=== PATIENT | female | born 1970 | race Caucasian/White ===

== ENCOUNTER 2016-11-05 14:30 | Outpatient (CLI) | payer OTHER | END 2016-11-05 14:31 | DX: N39.0 Urinary tract infection, site not specified (principal) ==

== ENCOUNTER 2017-04-14 08:55 | Outpatient (CLI) | payer OTHER ==
--- NOTE | 2017-04-14 10:23 | Ultrasound Report ---
RIGHT BREAST ULTRASOUND: 04/14/2017 CLINICAL INDICATION: Inferior right breast pain, history of bilateral mastectomy and implant reconst ruction. TECHNIQUE: Real-time scanning was performed with inside account representative static images obtained. FINDINGS: Ultrasound of the inferior right breast was performed, directed to the region of the patie nt's pain. The inferior margin of the implant is noted. No discrete solid or cystic mass is appreci ated adjacent to the implant. No sonographically suspicious findings are seen. IMPRESSION: BENIGN FINDINGS. RECOMMENDATION: Continued clinical surveillance. BIRADS CATEGORY 2 - BENIGN FINDINGS. 10:9:42 JOB #: [id number] EXT JOB #:[id number]
== END 2017-04-14 08:56 | disposition home or self-care (01) ==
LOC: DI 08:55
PROVIDERS: ATTEND Family Medicine
DX: N64.4 Mastodynia (principal); Z85.3 Personal history of malignant neoplasm of breast
CPT/HCPCS: 76642

== ENCOUNTER 2017-10-11 16:40 | Outpatient (CLI) | payer OTHER | END 2017-10-11 16:41 | LOC: LAB.R 16:40 | PROVIDERS: ATTEND Family Medicine | DX: R30.0 Dysuria (principal) | CPT/HCPCS: 87086 ==

== ENCOUNTER 2018-04-04 00:53 | Emergency (ER) | payer OTHER ==
[2018-04-04 01:19] LABS: BILIRUBIN,URINE NEGATIVE (NEGATIVE); GLUCOSE, URINE (UA) NEGATIVE (NEGATIVE); KETONES,URINE (UA) NEGATIVE (NEGATIVE); LEUKOCYTE ESTERASE, URINE NEGATIVE (NEGATIVE); NITRITE,URINE NEGATIVE (NEGATIVE); OCCULT BLOOD,URINE MODERATE (NEGATIVE); PROTEIN,URINE NEGATIVE (NEGATIVE); UROBILINOGEN,URINE 0.2 (NORMAL) E.U./dL (NORMAL)
[2018-04-04] MEDS ORDERED: KETOROLAC 30 MG/ML VIAL IVP STA (01:22)
[2018-04-04] MEDS ORDERED: ONDANSETRON 4 MG/2 ML VIAL IM STA (01:22)
[2018-04-04] MEDS ORDERED: SODIUM CHLORIDE 0.9% 1,000 ML IV ONE (01:22)
[2018-04-04 01:28] LABS: BACTERIA,URINE None Seen /HPF (None Seen); CLARITY,URINE CLEAR (CLEAR); HCG UR QUAL NEGATIVE; SQUAMOUS EPITHELIAL CELL,UR RARE Squamous (<= Few)
[2018-04-04 01:36] LABS: BASOPHILS # (AUTO) 0.1 10^3/uL (0.0-0.1); BASOPHILS % (AUTO) 0.6 %; EOSINOPHILS # (AUTO) 0.2 10^3/uL (0.0-0.7); EOSINOPHILS % (AUTO) 1.7 %; HGB - HEMOGLOBIN 12.1 g/dL (12.0-16.0); LYMPHOCYTES % (AUTO) 25.8 %; MEAN CORPUSCULAR HEMOGLOBIN 28.6 pg (27.0-31.0); MEAN CORPUSCULAR HGB CONC 33.7 g/dL (32.0-36.0); MEAN PLATELET VOLUME 7.9 fL (7.9-10.8); MONOCYTES % (AUTO) 8.6 %; NEUTROPHILS # (AUTO) 7.3 10^3/uL (1.5-6.6); NEUTROPHILS % (AUTO) 63.3 %; PLT - PLATELET COUNT 289 10^3/uL (130-450); RED BLOOD COUNT 4.22 10^6/uL (4.20-5.40); RED CELL DISTRIBUTION WIDTH 12.8 % (12.0-15.0); WHITE BLOOD COUNT 11.5 x10^3/uL (4.8-10.8)
[2018-04-04] MEDS ORDERED: ONDANSETRON 4 MG/2 ML VIAL IVP STA (01:36)
[2018-04-04 01:47] LABS: ALBUMIN 4.3 g/dL (3.2-5.5); ALBUMIN/GLOBULIN RATIO 1.4 (1.0-2.2); BILIRUBIN,TOTAL 0.8 mg/dL (0.2-1.0); CREATININE 0.7 mg/dL (0.4-1.0); TOTAL PROTEIN 7.3 g/dL (6.7-8.2)
[2018-04-04] MEDS ORDERED: fentaNYL 100 MCG/2 ML VIAL IVP STA ×2 (02:02→04:18)
--- NOTE | 2018-04-04 02:44 | ED Physician Documentation ---
PD HPI ABD PAIN - Stated complaint Stated Complaint: ABDOMINAL PAIN - Chief complaint Chief Complaint: Abd Pain - History obtained from History obtained from: Patient - History of Present Illness Timing - onset: How many hours ago (12) Timing - details: Gradual onset, Still present Quality: Dull Location: Other (right-sided) Radiation: Right flank Worsened by: Eating Associated symptoms: Nausea. No: Fever, Vomiting, Diarrhea, Dysuria - Additional information Additional information: The patient is a 48-year-old female who presents with right-sided abdominal pain that started about 12 hours prior to arrival, and has been constant since that time. She describes it as dull, and gradual in onset. She reports associated nausea, but denies vomiting. She denies fever or dysuria. The pain radiates to her right mid back. It became worse after eating a sandwich and again after eating an apple. Her past medical history is significant for breast cancer for which she is status post chemotherapy. Surgical history includes hysterectomy, oophorectomy, and lysis of adhesions. Review of Systems Constitutional: denies: Fever Nose: denies: Congestion Throat: denies: Sore throat Cardiac: denies: Chest pain / pressure Respiratory: denies: Dyspnea, Cough GI: reports: Abdominal Pain, Nausea. denies: Vomiting, Diarrhea : reports: Hysterectomy. 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 : Other HEENT: None Psych: None Musculoskeletal: Osteoarthritis Derm: None - Past Surgical History Past Surgical History: Yes General: Other /LINUX ADMIN: Hysterectomy, Oophrectomy - Present Medications Home Medications: Ambulatory Orders Medication Instructions Recorded Confirmed Valacyclovir HCl [Valacyclovir] 500 mg PO DAILY 02/26/15 11/23/17 - Allergies Allergies/Adverse Reactions: Allergies Allergy/AdvReac Type Severity Reaction Status Date / Time Sulfa (Sulfonamide Allergy Severe Anaphylaxis Verified 04/04/18 00:59 Antibiotics) codeine AdvReac Severe Nausea/ Verified 04/04/18 00:59 H/A and Increased Heart Rate doxycycline AdvReac Severe Nausea Verified 04/04/18 00:59 amoxicillin AdvReac Nausea Verified 04/04/18 00:59 - Social History Does the pt smoke?: No Smoking Status: Never smoker Does the pt drink ETOH?: No Does the pt have substance abuse?: No - POLST Patient has POLST: No PD ED PE NORMAL - Vitals Vital signs reviewed: Yes (Initially hypertensive.) - General General: Alert and oriented X 3, Well developed/nourished - HEENT HEENT: Atraumatic, Moist mucous membranes, Pharynx benign - Neck Neck: Supple, no meningeal sign, No adenopathy, No JVD - Cardiac Cardiac: RRR, No murmur - Respiratory Respiratory: No respiratory distress, Clear bilaterally - Abdomen Abdomen: Normal bowel sounds, Soft, No organomegaly, Other (Tenderness to palpation both in the right upper quadrant and right lower quadrant, without rebound tenderness or guarding) - Back Back: Other (Mild right CVA tenderness to percussion.) - Derm Derm: No rash - Extremities Extremities: No edema, No calf tenderness / cord - Neuro Neuro: Alert and oriented X 3, No motor deficit, Normal speech Results - Vitals Vitals: Vital Signs - 24 hr 04/04/18 04/04/18 04/04/18 00:56 02:20 03:44 Temperature 37.3 C 36.4 C L Heart Rate 84 80 74 Respiratory 16 16 18 Rate Blood Pressure 184/96 H 164/88 H 169/84 H O2 Saturation 99 98 98 Oxygen O2 Source Room air - Labs Labs: Laboratory Tests 04/04/18 04/04/18 04/04/18 01:11 01:11 01:25 WBC 11.5 H RBC 4.22 Hgb 12.1 Hct 35.9 L MCV 85.0 MCH 28.6 MCHC 33.7 RDW 12.8 Plt Count 289 MPV 7.9 Neut # (Auto) 7.3 H Lymph # (Auto) 3.0 [place] # (Auto) 1.0 Eos # (Auto) 0.2 Baso # (Auto) 0.1 Absolute Nucleated RBC 0.00 Nucleated RBC % 0.0 Sodium Potassium Chloride Carbon Dioxide Anion Gap BUN Creatinine Estimated GFR (MDRD) Glucose Calcium Total Bilirubin AST ALT Alkaline Phosphatase Total Protein Albumin Globulin Albumin/Globulin Ratio Lipase Urine Color YELLOW Urine Clarity CLEAR Urine pH 6.0 Ur Specific [place] 1.010 1.010 Urine Protein NEGATIVE Urine Glucose (UA) NEGATIVE Urine Ketones NEGATIVE Urine Occult Blood MODERATE H Urine Nitrite NEGATIVE Urine Bilirubin NEGATIVE Urine Urobilinogen 0.2 (NORMAL) Ur Leukocyte Esterase NEGATIVE Urine RBC 6-10 H Urine WBC 0-3 Ur Squamous Epith Cells RARE Squamous Urine Bacteria None Seen Ur Microscopic Review INDICATED Urine Culture Comments NOT INDICATED Urine HCG, Qual NEGATIVE 04/04/18 01:25 WBC RBC Hgb Hct MCV MCH MCHC RDW Plt Count MPV Neut # (Auto) Lymph # (Auto) [place] # (Auto) Eos # (Auto) Baso # (Auto) Absolute Nucleated RBC Nucleated RBC % Sodium 137 Potassium 3.5 Chloride 104 Carbon Dioxide 23 Anion Gap 10.0 BUN 13 Creatinine 0.7 Estimated GFR (MDRD) 89 Glucose 106 H Calcium 9.0 Total Bilirubin 0.8 AST 21 ALT 20 Alkaline Phosphatase 121 Total Protein 7.3 Albumin 4.3 Globulin 3.0 Albumin/Globulin Ratio 1.4 Lipase 30 Urine Color Urine Clarity Urine pH Ur Specific [place] Urine Protein Urine Glucose (UA) Urine Ketones Urine Occult Blood Urine Nitrite Urine Bilirubin Urine Urobilinogen Ur Leukocyte Esterase Urine RBC Urine WBC Ur Squamous Epith Cells Urine Bacteria Ur Microscopic Review Urine Culture Comments Urine HCG, Qual - Rads (name of study) RUQ U/S Radiology: Prelim report reviewed, EMP read contemporaneously, See rad report ( Gallbladder and common bile duct appeared normal. No cholelithiasis or cholecystitis identified. Fatty liver.) PD MEDICAL DECISION MAKING - ED course Complexity details: reviewed old records, reviewed results, re-evaluated patient , considered differential, d/w patient, d/w family, d/w staff consultant ED course: The patient's presentation is significant for right-sided abdominal pain of uncertain etiology, with tenderness more in the right lower quadrant than elsewhere. Appendicitis remains a consideration. White blood cell count is mildly elevated at 11.5. Chemistry panel is unremarkable, and urinalysis reveals few red blood cells, without pyuria or bacteriuria. Abdominal ultrasound reveals normal gallbladder and biliary ducts. Appendix is not visualized. Other considerations include adhesions, and less likely possibility is renal colic. Her presentation does not suggest renal colic, but microscopic hematuria raises the possibility. CT scan of the abdomen and pelvis is clinically indicated. However the CT scanner at [facility] is not functional tonight. I discussed with the patient and her the possibility of transfer to [facility] to undergo CT scanning. They are in agreement. I discussed transfer of care with the emergency physician at [facility], and she accepts. The patient will transfer by private auto with her IV remaining in place with a saline lock. Treatment in the emergency department included administration of normal saline 1 L IV, ondansetron 4 mg IV, ketorolac 30 mg IV, and fentanyl 50 mcg IV 2. This improved the patient's pain, but she continued to have tenderness in the right lower quadrant. Transfer forms were completed. - Sepsis Event Vital Signs: Vital Signs - 24 hr 04/04/18 04/04/18 04/04/18 00:56 02:20 03:44 Temperature 37.3 C 36.4 C L Heart Rate 84 80 74 Respiratory 16 16 18 Rate Blood Pressure 184/96 H 164/88 H 169/84 H O2 Saturation 99 98 98 Oxygen O2 Source Room air Departure - Departure Disposition: 02 Transfer Acute Care Hosp Clinical Impression: Abdominal pain Qualifiers: Abdominal location: right lower quadrant Qualified Code(s): R10.31 - Right lower quadrant pain Condition: Stable Instructions: ED Abdominal Pain Appendx Poss Follow-Up: Francisca Strauss MD [Primary Care Provider] - Comments: Go directly to the emergency department at [facility] in [place]. Do not eat or drink anything. Discharge Date/Time: 04/04/18 04:54
[2018-04-04 03:45] VITALS: BP 169/84
--- NOTE | 2018-04-04 03:59 | Ultrasound Report ---
Procedure Date: 04/04/2018 Accession Number: [id number] / [id number] Procedure: US - Abdomen Limited CPT Code: FULL RESULT: EXAM: ABDOMEN ULTRASOUND LIMITED, RUQ EXAM DATE: 04/04/2018 03:25 AM. CLINICAL HISTORY: Right upper quadrant pain. COMPARISON: None. TECHNIQUE: Real-time scanning was performed with static images obtained. FINDINGS: Liver: Echogenic. 17.0 cm. Main portal vein flow: Hepatopetal. Gallbladder: Normal. No stones, wall thickening, or sonographic Campbell's sign. Biliary System: CBD measures 3.1 mm. No intrahepatic or extrahepatic ductal dilatation. Other: Right kidney measures 9.5 cm and appears normal. Pancreas is not well seen. IMPRESSION: 1. Gallbladder and common duct appear normal. No cholelithiasis or cholecystitis identified. 2. Fatty liver. RADIA
== END 2018-04-04 04:54 | disposition short-term general hospital (02) ==
LOC: ED 00:53
DX: R10.31 Right lower quadrant pain (principal); R10.11 Right upper quadrant pain; R11.0 Nausea; D72.829 Elevated white blood cell count, unspecified; R31.29 Other microscopic hematuria; K76.0 Fatty (change of) liver, not elsewhere classified; Z85.3 Personal history of malignant neoplasm of breast
CPT/HCPCS: 36415; 76705; 80053; 81001; 81003; 81025; 83690; 85025; 87086; 96361; 96372; 96374; 96375; 96376; 99284

== ENCOUNTER 2018-06-23 13:07 | Outpatient (CLI) | payer OTHER ==
[2018-06-23 18:52] LABS: CREATININE 0.6 mg/dL (0.4-1.0)
== END 2018-06-23 13:08 | disposition home or self-care (01) ==
LOC: LAB.N 13:07
PROVIDERS: ATTEND Urology
DX: R31.9 Hematuria, unspecified (principal)
CPT/HCPCS: 36415; 82565; 84520

== ENCOUNTER 2018-09-01 08:00 | Outpatient (CLI) | payer OTHER | END 2018-09-01 23:59 | disposition home or self-care (01) | LOC: LAB.R 08:00 | PROVIDERS: ATTEND Physician Assistant Medical | DX: R30.0 Dysuria (principal) | CPT/HCPCS: 87086 ==

== ENCOUNTER 2018-10-19 10:15 | Outpatient (CLI) | payer OTHER ==
--- NOTE | 2018-10-19 14:46 | XRAY Report ---
Reason: SHOULDER PX LF/SHOULDER PX RT Procedure Date: 10/19/2018 Accession Number: [id number] / [id number] Procedure: WCP - Shoulder 2 View BILAT CPT Code: FULL RESULT: EXAM: BILATERAL SHOULDER RADIOGRAPHY EXAM DATE: 10/19/2018 10:28 AM. CLINICAL HISTORY: Chronic bilateral shoulder pain COMPARISON: None. TECHNIQUE: 2 views each shoulder. FINDINGS: RIGHT: Bones: No fracture or bone lesion. Joints: The glenohumeral and acromioclavicular joints are anatomically aligned without significant degenerative change Soft tissues: The included hemithorax is unremarkable. No soft tissue calcification. LEFT: Bones: No fracture or bone lesion. Joints: The glenohumeral and acromioclavicular joints are anatomically aligned. Minor degenerative change at the acromioclavicular joint. Soft tissues: The included hemithorax is unremarkable. There is calcification adjacent to the greater tuberosity consistent with calcific tendinitis. IMPRESSION: 1. Negative right shoulder radiography. 2. Left shoulder calcific tendinitis and early degenerative change. RADIA
== END 2018-10-19 10:16 | disposition home or self-care (01) ==
LOC: DI.WCP 10:15
PROVIDERS: ATTEND Physician Assistant Medical
DX: M75.32 Calcific tendinitis of left shoulder (principal); M19.012 Primary osteoarthritis, left shoulder; M25.511 Pain in right shoulder

== ENCOUNTER 2019-01-21 20:40 | Emergency (ER) | payer OTHER ==
--- NOTE | 2019-01-21 21:34 | ED Physician Documentation ---
PD HPI BACK PAIN - Stated complaint Stated Complaint: BACK PX/RT HIP PX - Chief complaint Chief Complaint: Back Pain - History obtained from History obtained from: Patient - History of Present Illness Timing - onset: Enter time (15:20), Today Timing - details: Abrupt onset Pain level now: 8 Location: Upper, Lower Quality: Pain Associated symptoms: No: Fever, Weakness, Numbness, Incontinent of urine, Unable to urinate, Hematuria, Incontinent of stool Improves with: Rest, Position Worsened by: Movement Similar symptoms before: Has not had sx before Recently seen: Not recently seen - Additional information Additional information: 3:20 PM today while at work, patient tripped on a shoe box, falling backwards, landing predominantly on her right side (right hip/buttock). She c/o gradually worsening pain in upper/mid back, as well as right buttock area. Occasionally the pain briefly radiates down RLE. Took ibuprofen and tylenol with relief but pain is worsening as those medications are wearing off. Review of Systems : denies: Incontinent Musculoskeletal: reports: Back pain, Joint pain (right hip, although predominantly right buttock in region of right pelvic ischium). 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 HEENT: None Psych: None Musculoskeletal: Osteoarthritis Derm: None - Past Surgical History Past Surgical History: Yes General: Other /SILICA FILTER OPERATOR: Hysterectomy, Oophrectomy - Present Medications Home Medications: Ambulatory Orders Medication Instructions Recorded Confirmed Valacyclovir HCl [Valacyclovir] 500 mg PO DAILY PRN 02/26/15 01/21/19 - Allergies Allergies/Adverse Reactions: Allergies Allergy/AdvReac Type Severity Reaction Status Date / Time Sulfa (Sulfonamide Allergy Severe Anaphylaxis Verified 01/21/19 20:50 Antibiotics) codeine AdvReac Severe Nausea/ Verified 01/21/19 20:50 H/A and Increased Heart Rate doxycycline AdvReac Severe Nausea Verified 01/21/19 20:50 amoxicillin AdvReac Nausea Verified 01/21/19 20:50 - Social History Does the pt smoke?: No Smoking Status: Never smoker Does the pt drink ETOH?: No Does the pt have substance abuse?: No - Immunizations Immunizations are current?: Yes - POLST Patient has POLST: No PD ED PE NORMAL - Vitals Vital signs reviewed: Yes - General General: Alert and oriented X 3, No acute distress, Well developed/nourished - Back Back: Other (mild TTP lower thoracic spine, midline, without obvious deformity, and without crepitus or bony step off. there is also TTP right ischium (ischial tuberosity)) - Derm Derm: Normal color, Warm and dry - Extremities Extremities: Normal ROM s pain - Neuro Neuro: No motor deficit, No sensory deficit Results - Vitals Vitals: Vital Signs - 24 hr 01/21/19 01/21/19 20:46 22:44 Temperature 36.5 C 36.1 C L Heart Rate 86 87 Respiratory 14 18 Rate Blood Pressure 180/91 H 167/84 H O2 Saturation 99 100 Oxygen O2 Source Room air - Rads (name of study) pelvis xray Radiology: Prelim report reviewed, See rad report thoracic spine xrays Radiology: Prelim report reviewed, See rad report PD MEDICAL DECISION MAKING - ED course Complexity details: reviewed results, re-evaluated patient, considered differential, d/w patient Departure - Departure Disposition: 01 Home, Self Care Clinical Impression: Fall, Back injury Condition: Good Instructions: ED Low Back Pain Injury Follow-Up: Gaye Jimenez PA-C [Primary Care Provider] - Discharge Date/Time: 01/21/19 22:46
[2019-01-21] MEDS ORDERED: IBUPROFEN 600 MG TABLET PO STA (21:46)
--- NOTE | 2019-01-21 22:16 | XRAY Report ---
Reason: fall, pain, tenderness Procedure Date: 01/21/2019 Accession Number: [id number] / [id number] Procedure: XR - Pelvis 1 View CPT Code: FULL RESULT: EXAM: PELVIS RADIOGRAPHY EXAM DATE: 01/21/2019 10:04 PM. CLINICAL HISTORY: Fall, pain, tenderness. COMPARISON: None. TECHNIQUE: 1 view. FINDINGS: Bones: Normal. No fracture or bone lesion. Joints: The visualized hip, pubis symphysis, and sacroiliac joints are preserved. No subluxation. Soft Tissues: Several surgical clips are seen within the pelvis. IMPRESSION: No evidence for acute fractures of the pelvis and hips. RADIA
--- NOTE | 2019-01-21 22:17 | XRAY Report ---
Reason: fall, pain , tenderness Procedure Date: 01/21/2019 Accession Number: [id number] / [id number] Procedure: XR - Thoracic Spine 2 View CPT Code: FULL RESULT: EXAM: THORACIC SPINE RADIOGRAPHY EXAM DATE: 01/21/2019 10:04 PM. CLINICAL HISTORY: Fall, pain , tenderness. COMPARISON: None. TECHNIQUE: 2 views. FINDINGS: Alignment: There is thoracic kyphosis. Bones: No fractures or bone lesions. Disks: Normal. Disk heights are maintained. Soft Tissues: Normal. The visualized lungs and cardiomediastinal silhouette are normal. IMPRESSION: 1. Thoracic kyphosis. 2. No fractures. RADIA
[2019-01-21 22:45] VITALS: BP 167/84
== END 2019-01-21 22:46 | disposition home or self-care (01) ==
LOC: ED 20:40
DX: S39.92XA Unspecified injury of lower back, initial encounter (principal); S29.9XXA Unspecified injury of thorax, initial encounter; W01.0XXA Fall on same level from slipping, tripping and stumbling without subsequent striking against object, initial encounter; Y93.89 Activity, other specified; Y92.512 Supermarket, store or market as the place of occurrence of the external cause; Y99.0 Civilian activity done for income or pay; M40.294 Other kyphosis, thoracic region
CPT/HCPCS: 1040M; 72070; 72170; 99282; 99283; A9270

== ENCOUNTER 2020-07-03 12:56 | Outpatient (CLI) | payer MEDICAID ==
--- NOTE | 2020-07-04 15:27 | Ultrasound Report ---
LIMITED ULTRASOUND OF LEFT BREAST: 07/03/2020 CLINICAL: Patient returns for imaging over a suspected mass in the left chest. No prior exams were available for comparison. Real-time ultrasound of the left breast was performed. Gross scale images of the real-time examinati on were reviewed. No significant abnormalities were seen sonographically along the left chest wall in the area of palpa ble abnormality. Mastectomy has been performed with tram flap reconstruction, per patient. IMPRESSION: NEGATIVE There is no sonographic correlate to the patient's palpable abnormality and no evidence of recurrent malignancy. Return to clinical screening schedule per oncology is recommended. Findings and recommendations were conveyed to the patient at time of exam. This exam was interpreted at Station ID: [id number]. Electronically Signed By: María reina/:07/03/2020 13:49:32 Ultrasound BI-RADS: 1 Negative BI-RADS CATEGORY: (1) - 1 Unspecified - other no recall LATERALITY: (B)
== END 2020-07-03 12:57 | disposition home or self-care (01) ==
LOC: DI 12:56
PROVIDERS: ATTEND Family Medicine
DX: N63.20 Unspecified lump in the left breast, unspecified quadrant (principal)
CPT/HCPCS: 76642

== ENCOUNTER 2021-03-25 11:17 | Emergency (ER) | payer MEDICAID ==
--- NOTE | 2021-03-25 12:50 | ED Physician Documentation ---
PD HPI ABD PAIN - Stated complaint Stated Complaint: ABD PX - Chief complaint Chief Complaint: Abd Pain - History obtained from History obtained from: Patient - History of Present Illness Timing - onset: How many days ago (2-3) Timing - duration: Days (3) Timing - details: Gradual onset, Still present Quality: Cramping, Aching, Pain Location: Suprapubic, LLQ Radiation: No: Lower back, Left flank Improved by: Laying still. No: BM Worsened by: Palpation. No: Eating Associated symptoms: Nausea, Hematochezia (Has been having formed stool with some mild looseness. She noted mucus and some blood yesterday and more blood mixed with stool today.). No: Fever, Vomiting, Diarrhea, Constipation Review of Systems Constitutional: reports: Chills. denies: Fever Nose: denies: Rhinorrhea / runny nose, Congestion Throat: denies: Sore throat Cardiac: denies: Palpitations Respiratory: denies: Cough GI: reports: Abdominal Pain, Nausea, Diarrhea (some mucous and loose stool, with red blood mixed with some brown stool, per pateint.). 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 HEENT: None Psych: None Musculoskeletal: Osteoarthritis Derm: None - Past Surgical History Past Surgical History: Yes General: Other /DESIGNER ARCHITECT: Hysterectomy, Oophrectomy - Present Medications Home Medications: Ambulatory Orders Medication Instructions Recorded Confirmed HYDROcod/ACETAM 5/325 [[place] 5/325] 1 ea PO Q6H PRN #15 tablet 03/25/21 Ondansetron Odt [Zofran] 4 mg TL Q6H PRN #15 tablet 03/25/21 cephALEXin [Keflex] 500 mg PO BID 7 Days #14 cap 03/25/21 metroNIDAZOLE [Flagyl] 500 mg PO BID 7 Days #14 tablet 03/25/21 - Allergies Allergies/Adverse Reactions: Allergies Allergy/AdvReac Type Severity Reaction Status Date / Time Sulfa (Sulfonamide Allergy Severe Anaphylaxis Verified 03/25/21 11:55 Antibiotics) codeine AdvReac Severe Nausea/ Verified 03/25/21 11:55 H/A and Increased Heart Rate doxycycline AdvReac Severe Nausea Verified 03/25/21 11:55 amoxicillin AdvReac Nausea Verified 03/25/21 11:55 - Social History Does the pt smoke?: No Smoking Status: Never smoker Does the pt drink ETOH?: No Does the pt have substance abuse?: No - Immunizations Immunizations are current?: Yes - POLST Patient has POLST: No PD ED PE NORMAL - Vitals Vital signs reviewed: Yes - General General: Alert and oriented X 3, No acute distress, Well developed/nourished - Neck Neck: Supple, no meningeal sign, No adenopathy - Cardiac Cardiac: RRR, No murmur - Respiratory Respiratory: Clear bilaterally - Abdomen Abdomen: Normal bowel sounds, Soft, Non distended, No organomegaly, Other (tender LLQ with some guarding. No percussion nor rebound. ) Results - Vitals Vitals: Oxygen O2 Source Room air - Labs Labs: Laboratory Tests 03/25/21 03/25/21 03/25/21 12:50 12:50 12:55 WBC 9.1 RBC 4.69 Hgb 13.3 Hct 40.9 MCV 87.2 MCH 28.4 MCHC 32.5 RDW 13.2 Plt Count 272 MPV 9.8 Neut # (Auto) 5.4 Lymph # (Auto) 2.6 Pepin # (Auto) 0.8 Eos # (Auto) 0.2 Baso # (Auto) 0.0 Absolute Nucleated RBC 0.00 Nucleated RBC % 0.0 ESR Sodium Potassium Chloride Carbon Dioxide Anion Gap BUN Creatinine Estimated GFR (MDRD) Glucose Calcium Total Bilirubin AST ALT Alkaline Phosphatase Total Protein Albumin Globulin Albumin/Globulin Ratio Lipase Urine Color YELLOW Urine Clarity CLEAR Urine pH 5.5 Ur Specific [place] 1.025 Urine Protein NEGATIVE Urine Glucose (UA) NEGATIVE Urine Ketones NEGATIVE Urine Occult Blood MODERATE H Urine Nitrite NEGATIVE Urine Bilirubin NEGATIVE Urine Urobilinogen 0.2 (NORMAL) Ur Leukocyte Esterase NEGATIVE Urine RBC 0-5 Urine WBC 0-3 Ur Squamous Epith Cells RARE Squamous Urine Bacteria Rare Ur Microscopic Review INDICATED Urine Culture Comments NOT INDICATED Urine HCG, Qual NEGATIVE 03/25/21 03/25/21 12:55 12:55 WBC RBC Hgb Hct MCV MCH MCHC RDW Plt Count MPV Neut # (Auto) Lymph # (Auto) [place] # (Auto) Eos # (Auto) Baso # (Auto) Absolute Nucleated RBC Nucleated RBC % ESR 18 Sodium 138 Potassium 3.8 Chloride 104 Carbon Dioxide 26 Anion Gap 8.0 BUN 13 Creatinine 0.6 Estimated GFR (MDRD) 105 Glucose 86 Calcium 9.6 Total Bilirubin 0.8 AST 21 ALT 20 Alkaline Phosphatase 123 H Total Protein 8.1 Albumin 4.7 Globulin 3.4 Albumin/Globulin Ratio 1.4 Lipase 32 Urine Color Urine Clarity Urine pH Ur Specific [place] Urine Protein Urine Glucose (UA) Urine Ketones Urine Occult Blood Urine Nitrite Urine Bilirubin Urine Urobilinogen Ur Leukocyte Esterase Urine RBC Urine WBC Ur Squamous Epith Cells Urine Bacteria Ur Microscopic Review Urine Culture Comments Urine HCG, Qual - Rads (name of study) abd/pelbic CT Radiology: Prelim report reviewed (small segment of sigmoid colon with thickening and stranding adjacent to diverticula, c/w local diverticulitis. ), See rad report PD MEDICAL DECISION MAKING - ED course Complexity details: reviewed results, considered differential, d/w patient Departure - Departure Disposition: 01 Home, Self Care Clinical Impression: Lower abdominal pain, Acute diverticulitis Condition: Stable Record reviewed to determine appropriate education?: Yes Instructions: ED Diverticulitis Prescriptions: metroNIDAZOLE [Flagyl] 500 mg PO BID 7 Days #14 tablet cephALEXin [Keflex] 500 mg PO BID 7 Days #14 cap HYDROcod/ACETAM 5/325 [[place] 5/325] 1 ea PO Q6H PRN #15 tablet PRN Reason: Pain Ondansetron Odt [Zofran] 4 mg TL Q6H PRN #15 tablet PRN Reason: Nausea / Vomiting Comments: Your CT scan shows a local area of inflammation and infection in the sigmoid colon consistent with diverticulitis/colitis. We would treat this with staying well-hydrated and using anti-inflammatories such as ibuprofen or naproxen twice daily with food. Also cephalexin and metronidazole antibiotics twice daily for a week. Add Tylenol every 4-6 hours if needed for pain. Use hydrocodone alternatively if needed for worse pain. Add ondansetron if needed for nausea. I would anticipate improvement in the pain and stopping of the mucus and blood with the stool over the next 2 to 3 days. Recheck if not improved well in the next several days and resolved by 3 to 5 days return sooner if worse. Discharge Date/Time: 03/25/21 16:15
[2021-03-25 13:00] LABS: BASOPHILS % (AUTO) 0.4 %; EOSINOPHILS # (AUTO) 0.2 10^3/uL (0.0-0.7); EOSINOPHILS % (AUTO) 2.3 %; HCT - HEMATOCRIT 40.9 % (37.0-47.0); HGB - HEMOGLOBIN 13.3 g/dL (12.0-16.0); LYMPHOCYTES # (AUTO) 2.6 10^3/uL (1.5-3.5); MEAN CORPUSCULAR HEMOGLOBIN 28.4 pg (27.0-31.0); MEAN CORPUSCULAR HGB CONC 32.5 g/dL (32.0-36.0); MEAN CORPUSCULAR VOLUME 87.2 fL (81.0-99.0); MEAN PLATELET VOLUME 9.8 fL (7.9-10.8); MONOCYTES # (AUTO) 0.8 10^3/uL (0.0-1.0); MONOCYTES % (AUTO) 9.1 %; NEUTROPHILS # (AUTO) 5.4 10^3/uL (1.5-6.6); PLT - PLATELET COUNT 272 10^3/uL (130-450); RED BLOOD COUNT 4.69 10^6/uL (4.20-5.40); RED CELL DISTRIBUTION WIDTH 13.2 % (12.0-15.0); WHITE BLOOD COUNT 9.1 x10^3/uL (4.8-10.8)
[2021-03-25 13:12] LABS: BILIRUBIN,URINE NEGATIVE (NEGATIVE); GLUCOSE, URINE (UA) NEGATIVE (NEGATIVE); KETONES,URINE (UA) NEGATIVE (NEGATIVE); LEUKOCYTE ESTERASE, URINE NEGATIVE (NEGATIVE); NITRITE,URINE NEGATIVE (NEGATIVE); OCCULT BLOOD,URINE MODERATE (NEGATIVE); PH,URINE 5.5 PH (5.0-7.5); PROTEIN,URINE NEGATIVE (NEGATIVE); UROBILINOGEN,URINE 0.2 (NORMAL) E.U./dL (NORMAL)
[2021-03-25 13:13] LABS: ALBUMIN 4.7 g/dL (3.2-5.5); ALBUMIN/GLOBULIN RATIO 1.4 (1.0-2.2); BILIRUBIN,TOTAL 0.8 mg/dL (0.2-1.0); CALCIUM 9.6 mg/dL (8.5-10.3); CREATININE 0.6 mg/dL (0.4-1.0); POTASSIUM 3.8 mmol/L (3.5-5.0); TOTAL PROTEIN 8.1 g/dL (6.7-8.2)
[2021-03-25 13:13] LABS: CLARITY,URINE CLEAR (CLEAR)
[2021-03-25] MEDS ORDERED: HYDROmorphone 1 MG/ML CARPUJECT IVP STA (13:15)
[2021-03-25] MEDS ORDERED: SODIUM CHLORIDE 0.9% 1,000 ML IV STA (13:15)
[2021-03-25] MEDS ORDERED: KETOROLAC 15 MG/ML VIAL IVP STA (13:15)
[2021-03-25 13:38] LABS: BACTERIA,URINE Rare /HPF (None Seen); RBC,URINE 0-5 /HPF (0-5); SQUAMOUS EPITHELIAL CELL,UR RARE Squamous (<= Few); WBC,URINE 0-3 /HPF (0-5)
[2021-03-25 13:48] LABS: HCG UR QUAL NEGATIVE
[2021-03-25] MEDS ORDERED: IOVERSOL 320 100 ML VIAL IVP ONE ×2 (14:21→16:30)
--- NOTE | 2021-03-25 15:08 | CT Report ---
PROCEDURE: Abdomen/Pelvis W INDICATIONS: lower abd pain and bloody stool CONTRAST: IV CONTRAST: Optiray 320 ml: 100 PO CONTRAST: *NO PO CONTRAST TECHNIQUE: After the administration of intravenous contrast, 5 mm thick sections acquired from the diaphragms to the symphysis. 5 mm thick coronal and sagittal reformats were acquired. For radiation dose reducti on, the following was used: automated exposure control, adjustment of mA and/or kV according to rakesh ent size. COMPARISON: None. FINDINGS: Image quality: Excellent. ABDOMEN: Lung bases: Lung bases are clear. Heart size is normal. Solid organs: Liver is enlarged with steatosis. The spleen are normal in size and enhancement. Gal lbladder is unremarkable. Biliary system is non dilated. Pancreas enhances normally. No adrenal no dules. Kidneys demonstrate normal size and enhancement, without hydronephrosis. Right renal cyst is noted. Peritoneum and bowel: Bowel loops are nonobstructive. Small segment of sigmoid colon demonstrating thickening with pericolonic stranding. Diverticula are noted. Trace dependent free fluid. No free air. Nodes and vessels: No retroperitoneal or mesenteric adenopathy by size criteria. Aorta and inferior vena cava are normal in size. Miscellaneous: No ventral hernias. PELVIS: Genitourinary: Bladder wall thickness is normal. Miscellaneous: No inguinal hernias or adenopathy. Bones: No suspicious bony lesions. No vertebral body compression fractures. IMPRESSION: 1. Small segment of sigmoid colon demonstrating thickening with pericolonic stranding and diverticul a, most consistent with colitis secondary to diverticulitis. Minimal dependent fluid. No abscess. Reviewed by: Shirin Varela MD on 03/25/2021 3:07 PM PDT Approved by: Shirin Varela MD on 03/25/2021 3:07 PM PDT Station ID: [id number]
[2021-03-25] MEDS ORDERED: cefTRIAXone 1 GM VIAL IVP STA (15:17)
[2021-03-25 15:57] VITALS: BP 126/82
[2021-03-25] MEDS ORDERED: ONDANSETRON 4 MG/2 ML VIAL IVP STA (15:59)
== END 2021-03-25 16:15 | disposition home or self-care (01) ==
LOC: ED 11:17
DX: K57.12 Diverticulitis of small intestine without perforation or abscess without bleeding (principal)
CPT/HCPCS: 36415; 74177; 80053; 81001; 81025; 83690; 85025; 85651; 96374; 96375; 99284; 99285; J1170; Q9967; 81003; 87086

== ENCOUNTER 2022-05-04 08:00 | Outpatient (CLI) | payer OTHER, MEDICAID ==
--- NOTE | 2022-05-05 09:09 | XRAY Report ---
PROCEDURE: Shoulder 3 View LT INDICATIONS: SHOULDER PX TECHNIQUE: 4 views of the shoulder were acquired. COMPARISON: None. FINDINGS: Mild left glenohumeral joint space narrowing with osteophytosis. Mild degenerative calcific tendinosi s of the supraspinatus insertion suspected. Mild to moderate acromioclavicular degenerative changes. No acute finding. No significant soft tissue abnormality. IMPRESSION: Mild left glenohumeral and mild to moderate left acromioclavicular degenerative change. Suspected supraspinatus calcific tendinosis. Reviewed by: Sawyer Mccoy MD on 05/05/2022 9:08 AM PDT Approved by: Sawyer Mccoy MD on 05/05/2022 9:08 AM PDT Station ID: [id number]
== END 2022-05-04 23:59 | disposition home or self-care (01) ==
LOC: DI.WOS 08:00
PROVIDERS: ATTEND Physician Assistant Surgical
DX: M19.012 Primary osteoarthritis, left shoulder (principal)

== ENCOUNTER 2024-04-25 11:12 | Outpatient (CLI) | payer OTHER ==
[2024-04-25 18:39] LABS: BASOPHILS # (AUTO) 0.1 10^3/uL (0.0-0.1); BASOPHILS % (AUTO) 0.7 %; EOSINOPHILS # (AUTO) 0.3 10^3/uL (0.0-0.7); EOSINOPHILS % (AUTO) 4.2 %; HCT - HEMATOCRIT 43.1 % (37.0-47.0); HGB - HEMOGLOBIN 13.1 g/dL (12.0-16.0); LYMPHOCYTES # (AUTO) 1.9 10^3/uL (1.5-3.5); LYMPHOCYTES % (AUTO) 27.2 %; MEAN CORPUSCULAR HEMOGLOBIN 27.7 pg (27.0-31.0); MEAN CORPUSCULAR HGB CONC 30.4 g/dL (32.0-36.0); MEAN CORPUSCULAR VOLUME 91.1 fL (81.0-99.0); MEAN PLATELET VOLUME 10.9 fL (7.9-10.8); MONOCYTES # (AUTO) 0.6 10^3/uL (0.0-1.0); MONOCYTES % (AUTO) 8.9 %; NEUTROPHILS # (AUTO) 4.2 10^3/uL (1.5-6.6); NEUTROPHILS % (AUTO) 58.9 %; PLT - PLATELET COUNT 288 10^3/uL (130-450); RED BLOOD COUNT 4.73 10^6/uL (4.20-5.40); RED CELL DISTRIBUTION WIDTH 13.2 % (12.0-15.0); WHITE BLOOD COUNT 7.1 x10^3/uL (4.8-10.8)
[2024-04-25 19:25] LABS: ALBUMIN 4.4 g/dL (3.2-5.5); ALBUMIN/GLOBULIN RATIO 1.5 (1.0-2.2); ALKALINE PHOSPHATASE 105 IU/L (42-121); ALT ALANINE AMINOTRANSFERASE 12 IU/L (10-60); AST ASPARTATE AMINOTRANSFERASE 16 IU/L (10-42); BILIRUBIN,TOTAL 0.5 mg/dL (0.2-1.0); BUN - BLOOD UREA NITROGEN 15 mg/dL (6-20); CALCIUM 9.6 mg/dL (8.5-10.3); CARBON DIOXIDE - CO2 27 mmol/L (21-32); CHLORIDE 105 mmol/L (101-111); CHOL/HDL RATIO 3.6 (<4.4); CHOLESTEROL 181 mg/dL; CREATININE 0.6 mg/dL (0.6-1.3); GFR - MDRD 104 (>89); GLUCOSE 87 mg/dL (74-104); HDL CHOLESTEROL 50 mg/dL; LDL CHOLESTEROL,CALCULATED 115 mg/dL; LDL/HDL RATIO 2.3 (<4.4); POTASSIUM 4.1 mmol/L (3.5-4.5); SODIUM 139 mmol/L (135-145); TOTAL PROTEIN 7.4 g/dL (6.4-8.9); TRIGLYCERIDES 81 mg/dL; VLDL CHOLESTEROL 16 mg/dL
[2024-04-25 19:35] LABS: THYROID STIMULATING HORMONE 1.73 uIU/mL (0.34-5.60)
[2024-04-25 20:59] LABS: ESTIMATED AVERAGE GLUCOSE 103 mg/dL (70-100); HEMOGLOBIN A1c% 5.2 % (4.27-6.07)
== END 2024-04-25 11:13 | disposition home or self-care (01) ==
LOC: LAB.N 11:12
DX: Z00.00 Encounter for general adult medical examination without abnormal findings (principal)
CPT/HCPCS: 36415; 80053; 80061; 83036; 83721; 84443; 85025

== ENCOUNTER 2024-05-09 12:18 | Outpatient (CLI) | payer OTHER ==
--- NOTE | 2024-05-10 13:25 | XRAY Report ---
PROCEDURE: Foot 3+V LT (Weight Bearing) INDICATIONS: FOOT PAIN, LEFT TECHNIQUE: 3 views of the foot were acquired. COMPARISON: None. FINDINGS: Bones: No fractures or dislocations. No suspicious bony lesions. Moderate calcaneal spur Soft tissues: No tibiotalar joint effusion. Achilles tendon appears normal. IMPRESSION: Moderate calcaneal spur Reviewed by: Jomar Baez MD on 05/10/2024 12:24 PM AKDT Approved by: Jomar Baez MD on 05/10/2024 12:24 PM AKDT Station ID: [id number]
== END 2024-05-09 12:19 | disposition home or self-care (01) ==
LOC: DI.N 12:18
DX: M77.32 Calcaneal spur, left foot (principal)

== ENCOUNTER 2024-05-24 11:27 | Day surgery (SDC) | payer OTHER ==
[2024-05-24] MEDS: LACTATED RINGERS 1,000 ML IV ONE ×2 (11:36→16:35)
--- NOTE | 2024-05-24 13:32 | ANESTHESIA ---
Pre-Anesthesia VS, & Labs - Diagnosis screening exam - Procedure colonoscopy Vital Signs: Temp Pulse Resp BP Pulse Ox O2 Flow Rate 36.2 C L 87 18 136/93 H 97 05/24/24 11:46 05/24/24 11:46 05/24/24 11:46 05/24/24 11:46 05/24/24 11:46 Height: 5 ft 3 in Weight (kg): 77.1 kg Body Mass Index: 30.1 BMI Classification: Obese - NPO >8 hours - Is Patient ?: No Home Medications and Allergies Home Medications: Ambulatory Orders Acetaminophen [Tylenol] 1,000 mg PO PRN PRN 05/23/24 Cholecalciferol (Vitamin D3) [Vitamin D3] 1 cap PO DAILY 05/23/24 Cyanocobalamin (Vitamin B-12) [Vitamin B-12] 1 cap PO DAILY 05/23/24 Acetaminophen [Tylenol] 1,000 mg PO PRN PRN 05/23/24 Cholecalciferol (Vitamin D3) [Vitamin D3] 1 cap PO DAILY 05/23/24 Cyanocobalamin (Vitamin B-12) [Vitamin B-12] 1 cap PO DAILY 05/23/24 Allergies/Adverse Reactions: Allergies Allergy/AdvReac Type Severity Reaction Status Date / Time Sulfa (Sulfonamide Allergy Severe Anaphylaxis Verified 05/24/24 11:46 Antibiotics) codeine AdvReac Severe Nausea/ Verified 05/24/24 11:46 H/A and Increased Heart Rate doxycycline AdvReac Severe Nausea Verified 05/24/24 11:46 amoxicillin AdvReac Nausea Verified 05/24/24 11:46 Anes History & Medical History - Anesthetic History Anesthesia Complications: reports: No previous complications - Medical History Cardiovascular: reports: None Pulmonary: reports: Pneumonia (2 months ago, now resolved), Other (snores) Gastrointestinal: reports: None Urinary: reports: None Neuro: reports: Peripheral neuropathy (s/p chemo) Musculoskeletal: reports: Osteoarthritis Endocrine/Autoimmune: reports: None Blood Disorders: reports: None Skin: reports: None Smoking Status: Never smoker Psychosocial: reports: No issues indicated History of Cancer?: Yes (breast s/p chemo) - Surgical History General: reports: Appendectomy, Other Gynecologic: reports: Hysterectomy, Oophrectomy, Mastectomy (bilateral) Exam General: Alert, Oriented x3, Cooperative, No acute distress Dental: WNL Mouth Openin Fingerbreadth Neck Mobility: Normal Mallampati classification: III Thyromental Distance: 4-6 cm Mental/Cognitive Status: Alert/Oriented X3, Normal for patient Plan Anesthesia Type: General, Total IV Consent for Procedure(s) Verified and Reviewed: Yes Code Status: Attempt Resuscitation ASA classification: 2-Mild systemic disease Is this case an emergency?: No
[2024-05-24] MEDS ORDERED: LIDOCAINE-MPF 2% 5 ML VIAL ONE (14:32)
[2024-05-24] MEDS ORDERED: PROPOFOL 500 MG/50 ML 500 MG/50 ML VIAL ONE (14:32)
--- NOTE | 2024-05-24 15:04 | HISTORY & PHYSICAL EXAMINATION ---
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 : positive: None HEENT: positive: None Psych: positive: None Musculoskeletal: positive: Osteoarthritis Derm: positive: None MRSA Hx?: No - Past Surgical History General: positive: Appendectomy, Other /REAL ESTATE INVESTMENT ANALYST: positive: Hysterectomy, Oophrectomy, Mastectomy (bilateral) Social & Family Hx - Social History Does the pt smoke?: No Smoking Status: Never smoker Does the pt drink ETOH?: No Does the pt have substance abuse?: No - POLST Patient has POLST: No Meds/Allgy - Home Medications Home Medications: Ambulatory Orders Medication Instructions Recorded Confirmed Acetaminophen [Tylenol] 1,000 mg PO PRN PRN 05/23/24 05/23/24 Cholecalciferol (Vitamin D3) 1 cap PO DAILY 05/23/24 05/23/24 [Vitamin D3] Cyanocobalamin (Vitamin B-12) 1 cap PO DAILY 05/23/24 05/23/24 [Vitamin B-12] - Allergies Allergies/Adverse Reactions: Allergies Allergy/AdvReac Type Severity Reaction Status Date / Time Sulfa (Sulfonamide Allergy Severe Anaphylaxis Verified 05/24/24 11:46 Antibiotics) codeine AdvReac Severe Nausea/ Verified 05/24/24 11:46 H/A and Increased Heart Rate doxycycline AdvReac Severe Nausea Verified 05/24/24 11:46 amoxicillin AdvReac Nausea Verified 05/24/24 11:46 Exam - Vital Signs Vital Signs: Vital Signs x48h Temp Pulse Resp BP Pulse Ox 05/24/24 11:46 36.2 C L 87 18 136/93 H 97
--- NOTE | 2024-05-24 15:21 | HISTORY & PHYSICAL EXAMINATION ---
Chief Complaint - Chief Complaint Chief Complaint: here for colonoscopy History of Present Illness - History Obtained From Records Reviewed: yes History obtained from: pt Exam Limitations: none - History of Present Illness HPI Comment/Other: first time colon cancer screening. father recently dx with colon ca. genetics unknown to lola. no gi problems. 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 : reports: None HEENT: reports: None Psych: reports: None Musculoskeletal: reports: Osteoarthritis Derm: reports: None MRSA Hx?: No - Past Surgical History General: reports: Appendectomy, Other /SEED CLEANING MANAGER: reports: Hysterectomy, Oophrectomy, Mastectomy (bilateral) - POLST Patient has POLST: No Meds/Allgy - Home Medications Home Medications: Ambulatory Orders Medication Instructions Recorded Confirmed Acetaminophen [Tylenol] 1,000 mg PO PRN PRN 05/23/24 05/23/24 Cholecalciferol (Vitamin D3) 1 cap PO DAILY 05/23/24 05/23/24 [Vitamin D3] Cyanocobalamin (Vitamin B-12) 1 cap PO DAILY 05/23/24 05/23/24 [Vitamin B-12] - Allergies Allergies/Adverse Reactions: Allergies Allergy/AdvReac Type Severity Reaction Status Date / Time Sulfa (Sulfonamide Allergy Severe Anaphylaxis Verified 05/24/24 11:46 Antibiotics) codeine AdvReac Severe Nausea/ Verified 05/24/24 11:46 H/A and Increased Heart Rate doxycycline AdvReac Severe Nausea Verified 05/24/24 11:46 amoxicillin AdvReac Nausea Verified 05/24/24 11:46 Review of Systems - Other Findings Other Findings: 10 pt ros as above otherwise unremarkable Exam - Vital Signs Vital Signs: Vital Signs x48h Temp Pulse Resp BP Pulse Ox 05/24/24 11:46 36.2 C L 87 18 136/93 H 97 - Physical Exam General Appearance: positive: No acute distress, Alert Eyes Bilateral: positive: Normal inspection, EOMI ENT: positive: No signs of dehydration Neck: positive: No JVD, Trachea midline Respiratory: positive: No respiratory distress Cardiovascular: positive: Regular rate & rhythm Abdomen: positive: No distention Neurologic/Psychiatric: positive: Oriented x3 Conclusion/Plan - Problem List (1) Colon cancer screening Conclusion/Plan: plan colonoscopy. parq held and consent obtained
[2024-05-24] MEDS ORDERED: PROPOFOL 200 MG/20 ML VIAL IVP ONE ×2 (15:59→16:24)
[2024-05-24] MEDS ORDERED: GLYCOPYRROLATE 1 MG/5 ML VIAL ONE (16:16)
[2024-05-24 16:44] VITALS: O2SAT 100
[2024-05-24 17:05] VITALS: BP 130/66
--- NOTE | 2024-05-24 18:26 | ANESTHESIA POST OP EVALUATION ---
Anesthesia Post Eval - Post Anesthesia Eval Vitals: Last Vital Signs Temp 36.4 C L 05/24/24 16:58 Pulse 80 05/24/24 16:58 Resp 19 05/24/24 16:58 BP 130/66 05/24/24 16:58 Pulse Ox 100 05/24/24 16:58 O2 Flow Rate CV Function Including HR & BP: Stable Pain Control: Satisfactory Nausea & Vomiting: Negative Mental Status: Baseline Respiratory Status: Airway Patent Hydration Status: Satisfactory Anesthesia Complications: None
== END 2024-05-24 11:28 | disposition home or self-care (01) ==
LOC: SDS 11:27
PROVIDERS: ATTEND Surgery
DX: Z12.11 Encounter for screening for malignant neoplasm of colon (principal); K57.30 Diverticulosis of large intestine without perforation or abscess without bleeding; E66.9 Obesity, unspecified; Z68.30 Body mass index [BMI] 30.0-30.9, adult; Z80.0 Family history of malignant neoplasm of digestive organs; Z85.3 Personal history of malignant neoplasm of breast
CPT/HCPCS: 45378; J7120